=== PATIENT | female | born 1990 | race Caucasian/White ===

== ENCOUNTER 2024-08-07 16:18 | Emergency (ER) | payer SELFPAY ==
[~2024-08-07] VITALS: Ht 154.9 cm; Wt 117.9 kg
[2024-08-07] MEDS ORDERED: AMOXICILLIN500 M2 PO (18:25)
[2024-08-07] MEDS ORDERED: AMOXICILLIN 500 MG CAP PO ONE (18:30)
== END 2024-08-07 18:40 | disposition home or self-care (01) ==
LOC: ED 16:18
DX: J02.9 Acute pharyngitis, unspecified (principal); Z20.822 Contact with and (suspected) exposure to COVID-19